=== PATIENT | male | born 1995 | race African-American/Black ===

== ENCOUNTER 2018-02-09 15:43 | Emergency (ER) | payer SELFPAY ==
[2018-02-09 15:49] VITALS: BP 113/74
--- NOTE | 2018-02-09 16:12 | EDPHY ---
General Time Seen by Provider: 02/09/18 16:00 Narrative: CHIEF COMPLAINT: Right hand pain HISTORY OF PRESENT ILLNESS: Right hand and wrist pain status post reported injury. He states that "a metal broom hit my hand and bent the broom." He declined until me the details the sore otherwise. Significant pain. Worse with palpation and movement. Radiates up into the wrist. No numbness or tingling. Difficulty using the fingers because of this. No injury elsewhere. No other associated complaints or modifying factors. DOMINANT EXTREMITY: Right-hand dominant ESTABLISHED ORTHOPEDIST: None REVIEW OF SYSTEMS: Ten systems reviewed and are negative unless otherwise noted in the HPI PAST MEDICAL HISTORY: Denies PAST SURGICAL HISTORY: Denies SOCIAL HISTORY: Nonsmoker. Lives here independently. FAMILY HISTORY: Noncontributory EXAMINATION General Appearance: Alert, no distress Cardiovascular: Radial pulses symmetric. Brisk cap refill in the right hand. Neurological: A&O, sensory symmetric, unable to test liner helper strength due to pain. Interossei strength is 5/5 in the right hand. Skin: Warm and dry, no rash. No petechiae. No purpura. No puncture laceration Extremities: Tenderness over the mid shaft right 5th metacarpal. Range of motion difficult to fully test but he does have flexion extension of the fingers. No tenderness of the right wrist snuffbox. Psychiatric: Mood and affect normal DIFFERENTIAL DIAGNOSES: Including but not limited to contusion, sprain, strain, fracture, subluxation MDM: 4:05 p.m. Reported blunt trauma to the 5th metacarpal of the right hand. No obvious signs of trauma outwardly. Unable to fully range but he is intact with no signs of vascular compromise. X-ray is pending. 4:20 p.m. I reviewed the plain film and I do not appreciate any findings on the hand or wrist series. Will place him in a Velcro splint for support. Discharge home with anti-inflammatories, ice, elevation instructions. Recommend follow up with hand surgeon for definitive care. ED precautions discussed. Discharged in stable condition SUPERVISION: This patient was independently evaluated without direct involvement of or examination by the attending physician. ED Precautions: Worsening pain. Erythema, edema, cyanosis, pallor, paresthesia or anesthesia. - Diagnostics Imaging Results: Imaging Impressions Hand X-Ray 02/09/18 15:50 Impression: Nothing acute identified. 2. Right Hand, Three Views History: Pain post blunt trauma. Findings: No fracture or dislocation is identified. Impression: Nothing acute identified. Wrist X-Ray 02/09/18 15:50 Impression: Nothing acute identified. 2. Right Hand, Three Views History: Pain post blunt trauma. Findings: No fracture or dislocation is identified. Impression: Nothing acute identified. - History Smoking Status: Never smoked - Objective Vital Signs: Initial Vital Signs Temperature (C) 98.6 F 02/09/18 15:46 Heart Rate 92 02/09/18 15:46 Respiratory Rate 17 02/09/18 15:46 Blood Pressure 113/74 02/09/18 15:46 O2 Sat (%) 96 02/09/18 15:46 O2 Delivery Mode Room Air Allergies/Adverse Reactions: No Known Allergies Allergy (Unverified 02/09/18 15:45) Home Medications: Medication Instructions Recorded Naproxen [Naprosyn] 500 mg PO BID #20 tablet 02/09/18 Departure - Departure Disposition: Home, Routine, Self-Care Clinical Impression: Contusion of hand, right Qualifiers: Encounter type: initial encounter Qualified Code(s): S60.221A - Contusion of right hand, initial encounter Condition: Good Instructions: Contusion in Adults (ED), Hand Sprain (ED) Additional Instructions: 1. Ice and elevation often 2. Contact hand surgeon for definitive care 3. Naprosyn as prescribed for pain and swelling as needed Referrals: Samm Garza MD [Medical Doctor] - As per Instructions Prescriptions: Naproxen [Naprosyn] 500 mg PO BID #20 tablet
== END 2018-02-09 16:33 | disposition home or self-care (01) ==
DX: S60.221A Contusion of right hand, initial encounter (principal); W22.8XXA Striking against or struck by other objects, initial encounter; Y99.8 Other external cause status
CPT/HCPCS: L3908